=== PATIENT | female | born 1990 | race Caucasian/White ===

== ENCOUNTER 2017-06-21 15:54 | Emergency (ER) | payer OTHER ==
[~2017-06-21] VITALS: Ht 177.8 cm; Wt 73.8 kg
[~2017-06-21 15:54] MED LIST: AMOXICILLIN500 MG OR; BACITRACIN500 MG/GM TOP; BACTRIM DS1 TAB PO; BACTROBAN2 % EX; CEPHALEXIN500 MG PO; DOXYCYCL HYC100 M4 PO; FERROUS SULFAT325 MG PO; FOLIC ACID1 MG PO; IBUPROFEN600 MG PO; KEFLEX500 M1 PO; LEVAQUIN750 MG PO; LORTAB 10 PO; LORTAB 1010 MG PO; LORTAB 5/3255 MG PO; MUPIROCIN2 % EX; NO CURRENT MEDS; PRENATA8 PO; ULTRAM50 M1 PO; ZOFRAN ODT4 MG SL
[2017-06-21] MEDS ORDERED: PRENATA7 PO (16:11)
[2017-06-21 16:41] LABS: URINE BILIRUBIN - DIPSTICK NEGATIVE (NEGATIVE); URINE BLOOD DIPSTICK NEGATIVE (NEGATIVE); URINE CLARITY CLOUDY; URINE COLOR YELLOW; URINE GLUCOSE - DIPSTICK NEGATIVE (NEGATIVE); URINE KETONE NEGATIVE (NEGATIVE); URINE NITRITE - DIPSTICK NEGATIVE (Negative); URINE PROTEIN - DIPSTICK NEGATIVE (NEG-TRACE); URINE SPECIFIC GRAVITY 1.015; URINE UROBILINOGEN - DIPSTICK 0.2 E.U./dL (0.2)
[2017-06-21 16:44] LABS: URINE LEUK ESTERASE SMALL (NEGATIVE)
[2017-06-21 16:52] LABS: URINE SQUAMOUS EPITHELIAL CELL FEW EPI/hpf (0-FEW)
[2017-06-21 16:53] LABS: URINE AMORPH SEDIMENT MANY hpf (NONE-FEW)
[2017-06-21] MEDS ORDERED: MACROBID100 MG PO (16:55)
[2017-06-21 18:07] VITALS: BP 113/64
[2017-06-21 18:25] LABS: BARBITURATES NEGATIVE (NEGATIVE); COCAINE NEGATIVE (NEGATIVE); METHADONE NEGATIVE (NEGATIVE); OXCYCODONE NEGATIVE (NEGATIVE); TETRAHYDROCANNABIONOL NEGATIVE (NEGATIVE); TRICYLIC ANTIDEPRESSANTS NEGATIVE (NEGATIVE)
== END 2017-06-21 18:07 | disposition home or self-care (01) | DRG 781 ==
LOC: ED 15:54
PROVIDERS: Emergency Medicine
DX: O23.42 Unspecified infection of urinary tract in pregnancy, second trimester (principal); F17.210 Nicotine dependence, cigarettes, uncomplicated; O99.332 Smoking (tobacco) complicating pregnancy, second trimester; Z3A.20 20 weeks gestation of pregnancy; R10.9 Unspecified abdominal pain; M54.9 Dorsalgia, unspecified; R06.02 Shortness of breath

== ENCOUNTER 2022-09-10 09:15 | Emergency (ER) | payer BC ==
[~2022-09-10] VITALS: Ht 177.8 cm; Wt 102.0 kg
[~2022-09-10 09:15] MED LIST changes: +MACROBID100 MG PO; +PRENATA7 PO
[2022-09-10 11:01] VITALS: BP 138/75
== END 2022-09-10 11:13 | disposition home or self-care (01) | DRG 563 ==
LOC: ED 09:15
DX: S62.316A Displaced fracture of base of fifth metacarpal bone, right hand, initial encounter for closed fracture (principal); W22.8XXA Striking against or struck by other objects, initial encounter

== ENCOUNTER 2023-04-02 18:05 | Emergency (ER) | payer BC ==
[~2023-04-02] VITALS: Ht 180.3 cm; Wt 95.0 kg
[2023-04-02] MEDS ORDERED: ULTRAM50 MG PO (22:46)
[2023-04-03 00:20] VITALS: BP 140/75
== END 2023-04-03 03:12 | disposition home or self-care (01) | DRG 563 ==
LOC: ED 18:05
DX: S93.602A Unspecified sprain of left foot, initial encounter (principal); F17.200 Nicotine dependence, unspecified, uncomplicated; X50.0XXA Overexertion from strenuous movement or load, initial encounter; Y92.009 Unspecified place in unspecified non-institutional (private) residence as the place of occurrence of the external cause